=== PATIENT | female | born 1925 | race American Indian/Alaskan Native ===

== ENCOUNTER 2016-08-30 13:59 | Observation (INO) | payer MEDICARE, MEDICAID, OTHER ==
[2016-08-30] MEDS ORDERED: Sodium Chloride 0.9% 2.5 ML Syringe FLUSH PRN (14:30)
[2016-08-30] MEDS ORDERED: Sodium Chloride 0.9% 10 ML Syringe FLUSH PRN (14:30)
--- NOTE | 2016-08-30 14:38 | EDM.PDOC ---
ED HPI GENERAL MEDICAL PROBLEM - General Chief Complaint: General Stated Complaint: FALL 08/16/16 PAIN IN HIP,L LEG Time Seen by Provider: 08/30/16 14:03 - History of Present Illness INITIAL COMMENTS - FREE TEXT/NARRATIVE: HISTORY AND PHYSICAL: History of present illness: The patient is an 89-year-old female who resides at [facility] and has a history of hypertension osteoarthritis pacemaker TIAs and was just recently diagnosed with the UTI is currently on Cipro and presents with complaints of inability to weight-bear on the left leg. According to the history she had a fall on August 15, 2 weeks ago but did not have any complaints of severe pain in the leg but has had some new increased in the pain without any new trauma. According to the provider at [facility] she has had more than this one fall and because she is unable to ambulate they thought she should be evaluated in the ER. According to the nurse at bedside they have great difficulty transferring her and she needs evaluation due to her screaming out whenever she puts weight on the leg. The patient is not a very good historian and complains of pain everywhere I touch on my evaluation but says it is mostly localized in the right hip and entire leg. She has no back or neck pain no headache no shortness of breath and no chest pain. To the longterm she complained of left rib pain but on my evaluation she was vague. She has no abdominal pain. She's been eating normally without vomiting or diarrhea. Review of systems: As per history of present illness and below otherwise all systems reviewed and negative. Past medical history: As per history of present illness and as reviewed below otherwise noncontributory. Surgical history: As per history of present illness and as reviewed below otherwise noncontributory. Social history: No reported history of drug or alcohol abuse. Family history: As per history of present illness and as reviewed below otherwise noncontributory. Physical exam: Gen.: Well-developed well-nourished female who is communicative and interactive but has difficulty moving in the bed due to overall discomfort. She speaks clearly without breathlessness HEENT: Atraumatic, except for a resolving ecchymosis at her left eyebrow area, normocephalic, pupils reactive, negative for conjunctival pallor or scleral icterus, mucous membranes moist, throat clear, neck supple, nontender, trachea midline. Lungs: Clear to auscultation with some coarse rhonchi scattered throughout but no worker breathing, breath sounds equal bilaterally, chest nontender. Pacemaker is appreciated in the left upper chest wall Heart: S1S2, regular rate and rhythm no overt murmurs Abdomen: Soft, nondistended, nontender. Negative for masses or hepatosplenomegaly. Negative for costovertebral tenderness. Pelvis: Stable nontender. Genitourinary: Deferred. Rectal: Deferred. Extremities: Atraumatic without any ecchymosis or abrasions, the right knee is very arthritic with some mild tenderness but there is no palpable bony deformities and she is able to range of motion here. There is tenderness at palpation of the lateral hip the distal femur and the tib-fib and knee on the left all without any bony deformities ecchymosis abrasions erythema or warmth. The patient resists range of motion on my evaluation of this extremity. The legs are, negative for cords or calf pain. Neurovascular unremarkable. Neuro: Awake, alert, oriented. Motor and sensory unremarkable throughout. Exam nonfocal. Back: There are no midline step-offs tendency defects of the thoracic or lumbar spine and no soft tissue injury such as ecchymosis abrasion or soft tissue changes. The thoracic spine is kyphotic Diagnostics: EKG CBC CMP INR troponin UA CT scan of the head left rib x-ray with chest x-ray left hip x-ray with pelvis left femur and tib-fib x-rays Therapeutics: IV O2 monitor 1718: I discussed all testing results with the patient family and Dr. Squires our hospitalist. We will observe admit the patient for development of pain management plan and physical therapy as the patient cannot weight-bear at this time although it is unclear why as all x-rays are negative. The patient is currently on Cipro for her UTI but a culture was sent and that information was passed on to Dr. Squires. As long as we do not move the patient she has not any pain and does not want any pain medication. Impression: Fall subacute with right rib fractures and intractable pain, inability to ambulate due to leg contusion, UTI on Cipro therapy Definitive disposition and diagnosis as appropriate pending reevaluation and review of above. left shoulder; left lower extremity Pain Score (Numeric/FACES): 6 - Related Data Allergies Allergy/AdvReac Type Severity Reaction Status Date / Time meperidine HCl [From Demerol] Allergy Other Verified 08/30/16 14:19 sumatriptan [From Imitrex] Allergy Other Verified 08/30/16 14:19 sumatriptan succinate Allergy Other Verified 08/30/16 14:19 [From Imitrex] Home Meds: Home Meds Acetaminophen [Tylenol] 325 mg PO Q4H PRN 02/07/14 [History] Acetaminophen with Codeine [Tylenol with Codeine #3 Tablet] 1 each PO TID PRN [History] Diltiazem [Cardizem CD] 120 mg PO DAILY 02/07/14 [History] Metoprolol Tartrate 25 mg PO BID 02/07/14 [History] Calcium Carbonate [Tums] 1,000 mg PO Q6H PRN 08/30/16 [History] Carboxymethylcellulose Sodium [Refresh Tears] 1 drop OP BID 08/30/16 [History] Ergocalciferol (Vitamin D2) [Vitamin D2] 50,000 unit PO FR 08/30/16 [History] Furosemide 40 mg PO DAILY 08/30/16 [History] Loperamide HCl [Imodium A-D] 2 - 4 mg PO ASDIRECTED PRN 08/30/16 [History] Menthol [Icy Hot Pain Relieving] 1 appful TP DAILY PRN 08/30/16 [History] Omeprazole 20 mg PO ACBREAKFAST 08/30/16 [History] Petrolatum,White [Vaseline] 18 ml TP DAILY PRN 08/30/16 [History] Potassium Chloride 20 meq PO DAILY 08/30/16 [History] Venlafaxine [Effexor XR] 37.5 mg PO DAILY 08/30/16 [History] Vit A/Vit C/Vit E/Zinc/Copper [Preservision] 1 each PO DAILY 08/30/16 [History] Past Medical History Cardiovascular History: Reports: Hypertension, Other (See Below) Other Cardiovascular History: edema Gastrointestinal History: Reports: GERD Musculoskeletal History: Reports: RA Psychiatric History: Reports: Depression - Infectious Disease History Infectious Disease History: Reports: None Social & Family History - Family History Family Medical History: Noncontributory - Tobacco Use Smoking Status *Q: Never Smoker Years of Tobacco use: 53 Used Tobacco, but Quit: Yes Month Tobacco Last Used: September Second Hand Smoke Exposure: No - Caffeine Use Caffeine Use: Reports: None - Alcohol Use Days Per Week of Alcohol Use: 0 - Recreational Drug Use Recreational Drug Use: No ED ROS GENERAL - Review of Systems Review Of Systems: ROS reveals no pertinent complaints other than HPI. ED EXAM, GENERAL - Physical Exam Exam: See Below (See dictation) Course - Vital Signs Last Recorded V/S: Last Vital Signs Temp 36.1 C 08/30/16 14:19 Pulse 91 08/30/16 17:28 Resp 18 08/30/16 17:28 BP 112/76 08/30/16 17:28 Pulse Ox 96 08/30/16 17:28 - Orders/Labs/Meds Orders: Active Orders 24 hr Category Date Time Status Patient Status [ADT] Stat ADT 08/30/16 17:28 Ordered Cardiac Monitoring [RC] . DIRECTED Care 08/30/16 14:29 Active EKG Documentation Completion [RC] STAT Care 08/30/16 14:29 Active Oxygen Therapy, ED [RC] ASDIRECTED Care 08/30/16 14:29 Active Pulse Oximetry [RC] ASDIRECTED Care 08/30/16 14:29 Active Femur Min 2V Lt [CR] Stat Exams 08/30/16 14:30 Taken Head wo Cont [CT] Stat Exams 08/30/16 14:30 Taken Hip Min 2V or 3V w Pelvis Lt [CR] Stat Exams 08/30/16 14:30 Taken Ribs 2V w Chest Lt [CR] Stat Exams 08/30/16 14:30 Taken Tibia Fibula Lt [CR] Stat Exams 08/30/16 14:30 Taken CULTURE URINE [RM] Stat Lab 08/30/16 15:40 Received Sodium Chloride 0.9% [Saline Flush] Med 08/30/16 14:30 Active 10 ml FLUSH ASDIRECTED PRN Sodium Chloride 0.9% [Saline Flush] Med 08/30/16 14:30 Active 2.5 ml FLUSH ASDIRECTED PRN Saline Lock Insert [OM.PC] Stat Oth 08/30/16 14:29 Ordered Medication Orders Sodium Chloride (Saline Flush) 10 ml FLUSH ASDIRECTED PRN PRN Reason: Keep Vein Open Sodium Chloride (Saline Flush) 2.5 ml FLUSH ASDIRECTED PRN PRN Reason: Keep Vein Open Labs: Laboratory Tests 08/30/16 08/30/16 08/30/16 Range/Units 14:41 14:41 14:41 WBC 11.66 H (4.0-11.0) K/uL RBC 4.18 L (4.30-5.90) M/uL Hgb 12.8 (12.0-16.0) g/dL Hct 39.2 (36.0-46.0) % MCV 93.8 (80.0-98.0) fL MCH 30.6 (27.0-32.0) pg MCHC 32.7 (31.0-37.0) g/dL RDW Std Deviation 48.9 (28.0-62.0) fl RDW Coeff of Colin 14 (11.0-15.0) % Plt Count 299 (150-400) K/uL MPV 10.20 (7.40-12.00) fL Neut % (Auto) 75.5 (48.0-80.0) % Lymph % (Auto) 17.3 (16.0-40.0) % Phelps % (Auto) 6.1 (0.0-15.0) % Eos % (Auto) 0.9 (0.0-7.0) % Baso % (Auto) 0.2 (0.0-1.5) % Neut # (Auto) 8.8 H (1.4-5.7) K/uL Lymph # (Auto) 2.0 (0.6-2.4) K/uL Phelps # (Auto) 0.7 (0.0-0.8) K/uL Eos # (Auto) 0.1 (0.0-0.7) K/uL Baso # (Auto) 0.0 (0.0-0.1) K/uL Nucleated RBC % 0.0 /100WBC Nucleated RBCs # 0 K/uL INR 1.07 (0.86-1.11) Sodium 138 (136-146) mmol/L Potassium 5.2 H (3.5-5.1) mmol/L Chloride 109 (98-110) mmol/L Carbon Dioxide 18 L (21-31) mmol/L BUN 21 (6.0-23.0) mg/dL Creatinine 1.1 (0.6-1.5) mg/dL Est Cr Clr Drug Dosing TNP Estimated GFR (MDRD) 46.9 ml/min Glucose 141 H (60-110) mg/dL Calcium 8.1 L (8.8-10.8) mg/dL Total Bilirubin 0.3 (0.1-1.5) mg/dL AST 34 (5-40) IU/L ALT 34 (8-54) IU/L Alkaline Phosphatase 172 H (40-150) Troponin I (0.0-0.29) NG/ML Total Protein 6.2 (6.0-8.0) g/dL Albumin 2.5 L (3.4-4.8) g/dL Globulin 3.7 H (2.0-3.5) g/dL Albumin/Globulin Ratio 0.7 L (1.3-2.8) Urine Color Urine Appearance Urine pH (5.0-8.0) Ur Specific [place] (1.001-1.035) Urine Protein (NEGATIVE) mg/dL Urine Glucose (UA) (NEGATIVE) mg/dL Urine Ketones (NEGATIVE) mg/dL Urine Occult Blood (NEGATIVE) Urine Nitrite (NEGATIVE) Urine Bilirubin (NEGATIVE) Urine Urobilinogen (<2.0) EU/dL Ur Leukocyte Esterase (NEGATIVE) Urine RBC (0-2/HPF) Urine WBC (0-5/HPF) Ur Epithelial Cells (NONE-FEW) Urine Bacteria (NEGATIVE) 08/30/16 08/30/16 Range/Units 14:41 15:40 WBC (4.0-11.0) K/uL RBC (4.30-5.90) M/uL Hgb (12.0-16.0) g/dL Hct (36.0-46.0) % MCV (80.0-98.0) fL MCH (27.0-32.0) pg MCHC (31.0-37.0) g/dL RDW Std Deviation (28.0-62.0) fl RDW Coeff of Colin (11.0-15.0) % Plt Count (150-400) K/uL MPV (7.40-12.00) fL Neut % (Auto) (48.0-80.0) % Lymph % (Auto) (16.0-40.0) % Phelps % (Auto) (0.0-15.0) % Eos % (Auto) (0.0-7.0) % Baso % (Auto) (0.0-1.5) % Neut # (Auto) (1.4-5.7) K/uL Lymph # (Auto) (0.6-2.4) K/uL Phelps # (Auto) (0.0-0.8) K/uL Eos # (Auto) (0.0-0.7) K/uL Baso # (Auto) (0.0-0.1) K/uL Nucleated RBC % /100WBC Nucleated RBCs # K/uL INR (0.86-1.11) Sodium (136-146) mmol/L Potassium (3.5-5.1) mmol/L Chloride (98-110) mmol/L Carbon Dioxide (21-31) mmol/L BUN (6.0-23.0) mg/dL Creatinine (0.6-1.5) mg/dL Est Cr Clr Drug Dosing Estimated GFR (MDRD) ml/min Glucose (60-110) mg/dL Calcium (8.8-10.8) mg/dL Total Bilirubin (0.1-1.5) mg/dL AST (5-40) IU/L ALT (8-54) IU/L Alkaline Phosphatase (40-150) Troponin I < 0.10 (0.0-0.29) NG/ML Total Protein (6.0-8.0) g/dL Albumin (3.4-4.8) g/dL Globulin (2.0-3.5) g/dL Albumin/Globulin Ratio (1.3-2.8) Urine Color YELLOW Urine Appearance CLOUDY Urine pH 5.5 (5.0-8.0) Ur Specific [place] 1.020 (1.001-1.035) Urine Protein NEGATIVE (NEGATIVE) mg/dL Urine Glucose (UA) NEGATIVE (NEGATIVE) mg/dL Urine Ketones NEGATIVE (NEGATIVE) mg/dL Urine Occult Blood MODERATE (NEGATIVE) Urine Nitrite NEGATIVE (NEGATIVE) Urine Bilirubin NEGATIVE (NEGATIVE) Urine Urobilinogen 0.2 (<2.0) EU/dL Ur Leukocyte Esterase LARGE (NEGATIVE) Urine RBC 1-3 (0-2/HPF) Urine WBC TO NUMEROUS TO COUNT H (0-5/HPF) Ur Epithelial Cells FEW (NONE-FEW) Urine Bacteria 2+ H (NEGATIVE) Meds: Medications Generic Name Dose Route Start Last Admin Trade Name Freq PRN Reason Stop Dose Admin Sodium Chloride 10 ml 08/30/16 14:30 Saline Flush FLUSH ASDIRECTED PRN Keep Vein Open Sodium Chloride 2.5 ml 08/30/16 14:30 Saline Flush FLUSH ASDIRECTED PRN Keep Vein Open Departure - Departure Time of Disposition: 17:33 Disposition: Refer to Observation Condition: Good Clinical Impression: Unable to ambulate Rib fractures Qualifiers: Encounter type: initial encounter Rib fracture type: multiple ribs Fracture type: closed Laterality: left Qualified Code(s): S22.42XA - Multiple fractures of ribs, left side, initial encounter for closed fracture Contusion of leg Qualifiers: Encounter type: initial encounter Laterality: left Qualified Code(s): S80.12XA - Contusion of left lower leg, initial encounter - Discharge Information Forms: ED Department Discharge - My Orders Last 24 Hours: My Active Orders 08/30/16 14:29 Cardiac Monitoring [RC] . DIRECTED EKG Documentation Completion [RC] STAT Oxygen Therapy, ED [RC] ASDIRECTED Pulse Oximetry [RC] ASDIRECTED Saline Lock Insert [OM.PC] Stat 08/30/16 14:30 Femur Min 2V Lt [CR] Stat Head wo Cont [CT] Stat Hip Min 2V or 3V w Pelvis Lt [CR] Stat Ribs 2V w Chest Lt [CR] Stat Tibia Fibula Lt [CR] Stat Sodium Chloride 0.9% [Saline Flush] 10 ml FLUSH ASDIRECTED PRN Sodium Chloride 0.9% [Saline Flush] 2.5 ml FLUSH ASDIRECTED PRN 08/30/16 15:40 CULTURE URINE [RM] Stat 08/30/16 17:28 Patient Status [ADT] Stat - Assessment/Plan Last 24 Hours: My Active Orders 08/30/16 14:29 Cardiac Monitoring [RC] . DIRECTED EKG Documentation Completion [RC] STAT Oxygen Therapy, ED [RC] ASDIRECTED Pulse Oximetry [RC] ASDIRECTED Saline Lock Insert [OM.PC] Stat 08/30/16 14:30 Femur Min 2V Lt [CR] Stat Head wo Cont [CT] Stat Hip Min 2V or 3V w Pelvis Lt [CR] Stat Ribs 2V w Chest Lt [CR] Stat Tibia Fibula Lt [CR] Stat Sodium Chloride 0.9% [Saline Flush] 10 ml FLUSH ASDIRECTED PRN Sodium Chloride 0.9% [Saline Flush] 2.5 ml FLUSH ASDIRECTED PRN 08/30/16 15:40 CULTURE URINE [RM] Stat 08/30/16 17:28 Patient Status [ADT] Stat
[2016-08-30 15:10] LABS: CHLORIDE,CL 109 mmol/L (98-110); SODIUM,NA 138 mmol/L (136-146)
[2016-08-30] MEDS ORDERED: Acetaminophen 325 MG Tab PO PRN (18:33)
[2016-08-30] MEDS ORDERED: Acetaminophen/HYDROcodone 325-5 MG Tab PO PRN (18:33)
[2016-08-30] MEDS ORDERED: Ondansetron 4 MG Tab.DIS PO PRN (18:33)
[2016-08-30] MEDS ORDERED: Calcium Carbonate 500 MG Tab.Chew PO PRN (18:39)
--- NOTE | 2016-08-30 19:21 | PCM.HP ---
<NagaDada - Last Filed: 08/30/16 19:13> H&P History of Present Illness - General Date of Service: 08/30/16 Admit Problem/Dx: fall Source of Information: Patient, Intermediate Records, Provider History Limitations: Reports: No Limitations - History of Present Illness Initial Comments - Free Text/Narative: 89-year-old female admitted 08/30/18 for fall with sustained right rib fractures and left leg pain with pmh of htn, bi-valv pacemaker, TIA, osteoarthritis, GERD , depression, and recently diagnosed UTI on Cipro. Patient is an 89 yo female who resides at [facility] and according to history had a fall on August 15, but did not have any complaints of pain. She presented to the ED on 08/30/18 after compaining of severe left leg pain without new trauma. She refused to stand or put weight on her left leg at [place] and was brought to ED for evaluation. Patient also complained of some left rib pain. Previously she had been eating normally without vomiting or diarrhea. She was diagnosed with a UTI and had been started on Cipro. On exam the patient is exquisitely tender to touch of the entire left extremity including hip. There is no significant swelling noted in comparison of right and left extremity. She does have mild tenderness to the left ribs. I did not appreciate any exceptional CVA tenderness on exam although the patient would not sit upright secondary to pain. Patient has a small area of ecchymosis on the left evangelical. No visual defects in skin of left leg or hip. Patient denied any chest pain, shortness of breath, syncope, abdominal pain, nausea, vomiting, or diarrhea. In the emergency department, CT of the head, x-ray of the left tib-fib, femur, and pelvis is unremarkable. There was noted lateral fractures of the seventh through 10th ribs and a 3.2 cm pulmonary mass in the left upper lobe. Patient had mild leukocytosis of 11.6, hyperkalemia at 5.2, and positive urinalysis for infection. Urine culture was sent. Patient was afebrile and normotensive. ECG showed no signs of acute eczema changes. Patient was admitted for fall, further evaluation, and pain management. left shoulder; left lower extremity Pain Score (Numeric/FACES): 6 - Related Data Allergies/Adverse Reactions: Allergies Allergy/AdvReac Type Severity Reaction Status Date / Time meperidine HCl [From Demerol] Allergy Other Verified 08/30/16 14:19 sumatriptan [From Imitrex] Allergy Other Verified 08/30/16 14:19 sumatriptan succinate Allergy Other Verified 08/30/16 14:19 [From Imitrex] Home Medications: Home Meds Acetaminophen [Tylenol] 325 mg PO Q4H PRN 02/07/14 [History] Acetaminophen with Codeine [Tylenol with Codeine #3 Tablet] 1 each PO TID PRN [History] Diltiazem [Cardizem CD] 120 mg PO DAILY 02/07/14 [History] Metoprolol Tartrate 25 mg PO BID 02/07/14 [History] Calcium Carbonate [Tums] 1,000 mg PO Q6H PRN 08/30/16 [History] Carboxymethylcellulose Sodium [Refresh Tears] 1 drop EYEBOTH BID 08/30/16 [ History] Ergocalciferol (Vitamin D2) [Vitamin D2] 50,000 unit PO FR@0800 08/30/16 [ History] Furosemide 40 mg PO DAILY 08/30/16 [History] Loperamide HCl [Imodium A-D] 4 mg PO ONETIME PRN 08/30/16 [History] Menthol [Icy Hot Pain Relieving] 1 appful TP BID PRN 08/30/16 [History] Omeprazole 20 mg PO ACBREAKFAST 08/30/16 [History] Petrolatum,White [Vaseline] 1 applic TP DAILY PRN 08/30/16 [History] Potassium Chloride 20 meq PO DAILY 08/30/16 [History] Venlafaxine [Effexor XR] 37.5 mg PO DAILY 08/30/16 [History] Vit A/Vit C/Vit E/Zinc/Copper [Preservision] 2 tab PO DAILY 08/30/16 [History] Acetaminophen [Tylenol] 325 mg PO DAILY 08/31/16 [History] Ciprofloxacin HCl [Cipro] 250 mg PO Q12H 08/31/16 [History] Loperamide [Imodium] 2 mg PO QID PRN 08/31/16 [History] Past Medical History Cardiovascular History: Reports: Hypertension, Other (See Below) Other Cardiovascular History: edema Gastrointestinal History: Reports: GERD Musculoskeletal History: Reports: RA Psychiatric History: Reports: Depression Oncologic (Cancer) History: Reports: Pancreatic - Infectious Disease History Infectious Disease History: Reports: None Social & Family History - Family History Family Medical History: Noncontributory - Tobacco Use Smoking Status *Q: Never Smoker Years of Tobacco use: 53 Used Tobacco, but Quit: Yes Month Tobacco Last Used: September Second Hand Smoke Exposure: No - Caffeine Use Caffeine Use: Reports: None - Alcohol Use Days Per Week of Alcohol Use: 0 - Recreational Drug Use Recreational Drug Use: No H&P Review of Systems - Review of Systems: Review Of Systems: See Below General: Denies: Fever, Chills, Diaphoresis HEENT: Denies: Headaches, Sore Throat Pulmonary: Reports: Cough. Denies: Shortness of Breath, Wheezing, Sputum, Hemoptysis Cardiovascular: Denies: Chest Pain, Palpitations, Edema Gastrointestinal: Denies: Abdominal Pain, Constipation, Diarrhea, Nausea, Vomiting Genitourinary: Denies: Dysuria, Burning, Pain Musculoskeletal: Reports: Leg Pain. Denies: Neck Pain Skin: Denies: Cyanosis Psychiatric: Denies: Confusion, Depression Neurological: Denies: Confusion, Dizziness, Headache Exam - Exam Exam: See Below - Vital Signs Vital Signs: Last Vital Signs Temp 36.1 C 08/30/16 18:15 Pulse 80 08/30/16 17:55 Resp 18 08/30/16 17:55 BP 127/66 08/30/16 18:15 Pulse Ox 94 L 08/30/16 18:15 Weight: 66.678 kg - Exam Quality Assessment: DVT Prophylaxis General: Alert, Oriented, Cooperative HEENT: Conjunctiva Clear, EACs Clear, EOMI, Hearing Intact, Mucosa Moist & [place] , Nares Patent, Normal Nasal Septum, Posterior Pharynx Clear, PERRLA Neck: Supple, Trachea Midline, 2 Lungs: Clear to Auscultation, Normal Respiratory Effort Cardiovascular: Regular Rate, Regular Rhythm Abdomen: Normal Bowel Sounds, Soft Back Exam: Normal Inspection. No: CVA Tenderness (L), CVA Tenderness (R) Extremities: Normal Inspection, Normal Pulses. No: Edema Peripheral Pulses: 2+: Brachial (L), Brachial (R), Posterior Tibial (L), Posterior Tibial (R), Dorsalis Pedis (L), Dorsalis Pedis (R) Skin: Warm, Dry, Intact Neurological: Cranial Nerves Intact Neuro Extensive - Mental Status: Alert, Oriented x3, Normal Mood/Affect, Normal Cognition Neuro Extensive - Motor, Sensory, Reflexes: CN II-XII Intact, Normal Gait, Normal Reflexes Psychiatric: Alert, Normal Affect, Normal Mood - Patient Data Result Diagrams: 08/30/16 14:41 08/30/16 14:41 *Q Meaningful Use (ADM) - VTE *Q VTE Criteria *Q: - Stroke *Q Stroke Criteria *Q: - AMI *Q AMI Criteria *Q: - Problem List (1) Rib fractures SNOMED Code(s): 00927655 ICD Code: S22.39XA - FRACTURE OF ONE RIB, UNSP SIDE, INIT FOR CLOS FX Status: Acute Priority: High Current Visit: Yes Qualifiers: Encounter type: initial encounter Rib fracture type: multiple ribs Fracture type: closed Laterality: left Qualified Code(s): S22.42XA - Multiple fractures of ribs, left side, initial encounter for closed fracture (2) Unable to ambulate SNOMED Code(s): 761362219 ICD Code: R26.2 - DIFFICULTY IN WALKING, NOT ELSEWHERE CLASSIFIED Status: Acute Priority: High Current Visit: Yes (3) Contusion SNOMED Code(s): 713014638 ICD Code: T14.8 - OTHER INJURY OF UNSPECIFIED BODY REGION Status: Acute Priority: Medium Current Visit: Yes Onset Date: 02/07/14 (4) Fall SNOMED Code(s): 5414513 ICD Code: W19.XXXA - UNSPECIFIED FALL, INITIAL ENCOUNTER Status: Acute Priority: High Current Visit: Yes Onset Date: 02/13/14 Problem List Initiated/Reviewed/Updated: Yes Orders Last 24hrs: Active Orders 24 hr Category Date Time Status Patient Status [ADT] Routine ADT 08/30/16 18:33 Ordered Antiembolic Devices [RC] PER UNIT ROUTINE Care 08/30/16 18:38 Ordered Oxygen Therapy [RC] PRN Care 08/30/16 18:33 Ordered Up With Assistance [RC] ASDIRECTED Care 08/30/16 18:33 Ordered VTE/DVT Education [RC] PER UNIT ROUTINE Care 08/30/16 18:33 Ordered Vital Signs [RC] Q4H Care 08/30/16 18:33 Ordered OT Evaluation and Treatment [CONS] Routine Cons 08/30/16 18:33 Ordered PT Evaluation and Treatment [CONS] Routine Cons 08/30/16 18:33 Ordered Regular Diet [DIET] Diet 08/30/16 Dinner Ordered VL Duplex Lwr Ext Veins Ltd Lt [US] Routine Exams 08/30/16 18:51 Ordered BASIC METABOLIC PANEL,BMP [CHEM] AM Lab 08/31/16 05:11 Ordered BASIC METABOLIC PANEL,BMP [CHEM] AM Lab 09/01/16 05:11 Ordered BASIC METABOLIC PANEL,BMP [CHEM] AM Lab 09/02/16 05:11 Ordered BASIC METABOLIC PANEL,BMP [CHEM] AM Lab 09/03/16 05:11 Ordered CBC WITH AUTO DIFF [HEME] AM Lab 08/31/16 05:11 Ordered CBC WITH AUTO DIFF [HEME] AM Lab 09/01/16 05:11 Ordered CBC WITH AUTO DIFF [HEME] AM Lab 09/02/16 05:11 Ordered CBC WITH AUTO DIFF [HEME] AM Lab 09/03/16 05:11 Ordered MAGNESIUM [CHEM] AM Lab 08/31/16 05:11 Ordered PHOSPHORUS [CHEM] AM Lab 08/31/16 05:11 Ordered Acetaminophen [Tylenol] Med 08/30/16 18:33 Ordered 650 mg PO Q4H PRN Acetaminophen/HYDROcodone [[place] 325-5 MG] Med 08/30/16 18:33 Ordered 1 tab PO Q4H PRN Calcium Carbonate [Tums] Med 08/30/16 18:39 Ordered 1,000 mg PO Q6H PRN Carboxymethylcellulose Sodium Med 08/30/16 21:00 Ordered 1 drop OP BID Ciprofloxacin in D5W [Cipro in D5W 400 MG/200 ML] 400 Med 08/30/16 18:45 Ordered mg Premix Bag 1 bag IV Q12H Diltiazem [Cardizem CD] Med 08/31/16 09:00 Ordered 120 mg PO DAILY Furosemide [Lasix] Med 08/31/16 09:00 Ordered 40 mg PO DAILY Metoprolol Tartrate [Lopressor] Med 08/30/16 21:00 Ordered 25 mg PO BID Omeprazole Med 08/31/16 07:30 Ordered 20 mg PO ACBREAKFAST Ondansetron [Zofran ODT] Med 08/30/16 18:33 Ordered 4 mg PO Q4H PRN Venlafaxine [Effexor XR] Med 08/31/16 09:00 Ordered 37.5 mg PO DAILY Sequential Compression Device [OM.PC] Per Unit Routine Oth 08/30/16 18:36 Ordered Resuscitation Status Routine Resus Stat 08/30/16 18:33 Ordered Medication Orders Acetaminophen (Tylenol) 650 mg PO Q4H PRN PRN Reason: Pain (Mild 1-3)/fever Hydrocodone Bitart/Acetaminophen ([place] 325-5 Mg) 1 tab PO Q4H PRN PRN Reason: Pain (moderate 4-6) Calcium Carbonate/Glycine (Tums) 1,000 mg PO Q6H PRN PRN Reason: Heartburn Diltiazem HCl (Cardizem Cd) 120 mg PO DAILY [place] Furosemide (Lasix) 40 mg PO DAILY [place] Ciprofloxacin/Dextrose 400 mg/ (Premix) 200 mls @ 200 mls/hr IV Q12H [place] Metoprolol Tartrate (Lopressor) 25 mg PO BID [facility] Non-Formulary Medication (Carboxymethylcellulose Sodium) 1 drop OP BID [place] Omeprazole (Omeprazole) 20 mg PO ACBREAKFAST [place] Ondansetron HCl (Zofran Odt) 4 mg PO Q4H PRN PRN Reason: nausea, able to take PO Sodium Chloride (Saline Flush) 10 ml FLUSH ASDIRECTED PRN PRN Reason: Keep Vein Open Sodium Chloride (Saline Flush) 2.5 ml FLUSH ASDIRECTED PRN PRN Reason: Keep Vein Open Venlafaxine HCl (Effexor Xr) 37.5 mg PO DAILY [facility] Assessment/Plan Comment:: 89-year-old female admitted 08/30/18 for fall with sustained right rib fractures and left leg pain with pmh of htn, bi-valv pacemaker, TIA, osteoarthritis, GERD , depression, and recently diagnosed UTI on Cipro. Left Leg Pain: X-ray's negative for acute osseous abnormalities. Will get venous doplar to rule out DVT however there is no noted swelling. This may be referred pain from her back but difficult to assess as patient is difficult to exam. UTI: Culture collected. Will start Cipro IV while inpatient. No noted CVA tenderness on exam however difficult to assess. No abdominal pain. Rib fractures: 7-10 left rib fractures. Stable no flail chest. Pain control acetaminophen and [place] 5 htn: Stable restart home meds Bi-valv pacemaker: Stable on telemetry GERD: Stable restart home meds. Debilitation: PT/OT to assess balance and strengthening VTE: SCD high fall risk Dispo: 1-2 days. <Jose Squires - Last Filed: 08/31/16 19:12> Exam - Vital Signs Vital Signs: Last Vital Signs Temp 36.4 C 08/31/16 16:00 Pulse 88 08/31/16 16:00 Resp 18 08/31/16 16:00 BP 126/82 08/31/16 16:00 Pulse Ox 95 08/31/16 18:33 - Patient Data Lab Results Last 24 hrs: Laboratory Results - last 24 hr 08/31/16 08/31/16 Range/Units 04:17 04:17 WBC 10.24 (4.0-11.0) K/uL RBC 4.22 L (4.30-5.90) M/uL Hgb 12.7 (12.0-16.0) g/dL Hct 39.8 (36.0-46.0) % MCV 94.3 (80.0-98.0) fL MCH 30.1 (27.0-32.0) pg MCHC 31.9 (31.0-37.0) g/dL RDW Std Deviation 49.8 (28.0-62.0) fl RDW Coeff of Colin 15 (11.0-15.0) % Plt Count 303 (150-400) K/uL MPV 10.20 (7.40-12.00) fL Neut % (Auto) 68.7 (48.0-80.0) % Lymph % (Auto) 22.1 (16.0-40.0) % Karnes % (Auto) 7.2 (0.0-15.0) % Eos % (Auto) 1.8 (0.0-7.0) % Baso % (Auto) 0.2 (0.0-1.5) % Neut # (Auto) 7.0 H (1.4-5.7) K/uL Lymph # (Auto) 2.3 (0.6-2.4) K/uL Karnes # (Auto) 0.7 (0.0-0.8) K/uL Eos # (Auto) 0.2 (0.0-0.7) K/uL Baso # (Auto) 0.0 (0.0-0.1) K/uL Nucleated RBC % 0.0 /100WBC Nucleated RBCs # 0 K/uL Sodium 137 (136-146) mmol/L Potassium 4.4 (3.5-5.1) mmol/L Chloride 107 (98-110) mmol/L Carbon Dioxide 20 L (21-31) mmol/L BUN 18 (6.0-23.0) mg/dL Creatinine 1.0 (0.6-1.5) mg/dL Est Cr Clr Drug Dosing 32.17 mL/min Estimated GFR (MDRD) 52.3 ml/min Glucose 88 (60-110) mg/dL Calcium 8.1 L (8.8-10.8) mg/dL Phosphorus 3.2 (2.4-4.7) mg/dL Magnesium 1.5 (1.5-2.3) mEq/L Result Diagrams: 08/31/16 04:17 08/31/16 04:17 *Q Meaningful Use (ADM) - VTE *Q VTE Criteria *Q: - Stroke *Q Stroke Criteria *Q: - AMI *Q AMI Criteria *Q: Orders Last 24hrs: Active Orders 24 hr Category Date Time Status Patient Status [ADT] Routine ADT 08/30/16 18:33 Active Antiembolic Devices [RC] PER UNIT ROUTINE Care 08/30/16 18:38 Active Oxygen Therapy [RC] PRN Care 08/30/16 18:33 Active Up With Assistance [RC] ASDIRECTED Care 08/30/16 18:33 Active Vital Signs [RC] Q4H Care 08/30/16 18:33 Active OT Evaluation and Treatment [CONS] Routine Cons 08/30/16 18:33 Active PT Evaluation and Treatment [CONS] Routine Cons 08/30/16 18:33 Active Regular Diet [DIET] Diet 08/30/16 Dinner Active BASIC METABOLIC PANEL,BMP [CHEM] AM Lab 09/01/16 05:11 Ordered BASIC METABOLIC PANEL,BMP [CHEM] AM Lab 09/02/16 05:11 Ordered BASIC METABOLIC PANEL,BMP [CHEM] AM Lab 09/03/16 05:11 Ordered CBC WITH AUTO DIFF [HEME] AM Lab 09/01/16 05:11 Ordered CBC WITH AUTO DIFF [HEME] AM Lab 09/02/16 05:11 Ordered CBC WITH AUTO DIFF [HEME] AM Lab 09/03/16 05:11 Ordered Acetaminophen [Tylenol] Med 08/30/16 18:33 Active 650 mg PO Q4H PRN Acetaminophen/Codeine [Tylenol with Codeine No.3 300MG/ Med 08/30/16 19:29 Active 30MG] 1 tab PO TID PRN Acetaminophen/HYDROcodone [[place] 325-5 MG] Med 08/30/16 18:33 Active 1 tab PO Q4H PRN Calcium Carbonate [Tums] Med 08/30/16 18:39 Active 1,000 mg PO Q6H PRN Carboxymethylcellulose Sodium [Refresh Plus 0.5%] Med 08/30/16 21:00 Active 0 each EYEBOTH BID Ciprofloxacin in D5W [Cipro in D5W 400 MG/200 ML] 400 Med 08/30/16 18:45 Active mg Premix Bag 1 bag IV Q12H Diltiazem [Cardizem CD] Med 08/31/16 09:00 Active 120 mg PO DAILY Furosemide [Lasix] Med 08/31/16 09:00 Active 40 mg PO DAILY Metoprolol Tartrate [Lopressor] Med 08/30/16 21:00 Active 25 mg PO BID Omeprazole Med 08/31/16 07:30 Active 20 mg PO ACBREAKFAST Ondansetron [Zofran ODT] Med 08/30/16 18:33 Active 4 mg PO Q4H PRN Potassium Chloride [Klor-Con M20] Med 08/31/16 09:00 Active 20 meq PO DAILY Venlafaxine [Effexor XR] Med 08/31/16 09:00 Active 37.5 mg PO DAILY Sequential Compression Device [OM.PC] Per Unit Routine Oth 08/30/16 18:36 Ordered Resuscitation Status Routine Resus Stat 08/30/16 18:33 Ordered Medication Orders Acetaminophen (Tylenol) 650 mg PO Q4H PRN PRN Reason: Pain (Mild 1-3)/fever Acetaminophen/Codeine Phosphate (Tylenol With Codeine No.3 300mg/30mg) 1 tab PO TID PRN PRN Reason: Pain Last Admin: 08/31/16 16:41 Dose: 1 tab Admin: 08/31/16 05:48 Dose: 1 tab Admin: 08/30/16 20:09 Dose: 1 tab Hydrocodone Bitart/Acetaminophen ([place] 325-5 Mg) 1 tab PO Q4H PRN PRN Reason: Pain (moderate 4-6) Artificial Tears (Refresh Plus 0.5%) 0 each EYEBOTH BID [facility] Last Admin: 08/31/16 08:09 Dose: 1 drop Admin: 08/30/16 20:43 Dose: 1 drop Calcium Carbonate/Glycine (Tums) 1,000 mg PO Q6H PRN PRN Reason: Heartburn Diltiazem HCl (Cardizem Cd) 120 mg PO DAILY [facility] Last Admin: 08/31/16 08:09 Dose: 120 mg Furosemide (Lasix) 40 mg PO DAILY [facility] Last Admin: 08/31/16 08:10 Dose: 40 mg Ciprofloxacin/Dextrose 400 mg/ (Premix) 200 mls @ 200 mls/hr IV Q12H [facility] Last Admin: 08/31/16 17:49 Dose: 200 mls/hr Infusion: 08/31/16 06:43 Dose: 200 mls/hr Admin: 08/31/16 05:43 Dose: 200 mls/hr Infusion: 08/30/16 20:34 Dose: 200 mls/hr Admin: 08/30/16 19:34 Dose: 200 mls/hr Metoprolol Tartrate (Lopressor) 25 mg PO BID [facility] Last Admin: 08/31/16 08:08 Dose: 25 mg Admin: 08/30/16 20:43 Dose: 25 mg Omeprazole (Omeprazole) 20 mg PO ACBREAKFAST [facility] Last Admin: 08/31/16 06:34 Dose: 20 mg Ondansetron HCl (Zofran Odt) 4 mg PO Q4H PRN PRN Reason: nausea, able to take PO Potassium Chloride (Klor-Con M20) 20 meq PO DAILY [facility] Last Admin: 08/31/16 08:08 Dose: 20 meq Sodium Chloride (Saline Flush) 10 ml FLUSH ASDIRECTED PRN PRN Reason: Keep Vein Open Sodium Chloride (Saline Flush) 2.5 ml FLUSH ASDIRECTED PRN PRN Reason: Keep Vein Open Venlafaxine HCl (Effexor Xr) 37.5 mg PO DAILY [facility] Last Admin: 08/31/16 08:10 Dose: 37.5 mg - Free Text/Narrative Note: I have examined the patient. I have discussed findings and treatment plan with resident. I agree with the assessment and plan outlined in the following note.
[2016-08-30] MEDS: Ciprofloxacin in D5W 400 MG in Premix Bag 1 BAG IV SCH ×2 (19:34)
[2016-08-30] MEDS: Acetaminophen/Codeine 300-30 MG Tab PO PRN (20:09)
[2016-08-30] MEDS: Carboxymethylcellulose Sodium 0.5% Ophth Soln 0.4 ML UD Box of 30 EYEBOTH SCH (20:43)
[2016-08-30] MEDS: Metoprolol Tartrate 25 MG Tab PO SCH (20:43)
[2016-08-31] MEDS: Ciprofloxacin in D5W 400 MG in Premix Bag 1 BAG IV SCH ×4 (05:43→17:49)
[2016-08-31] MEDS: Acetaminophen/Codeine 300-30 MG Tab PO PRN ×2 (05:48→16:41)
[2016-08-31] MEDS: Omeprazole 20 MG Cap.CR PO SCH (06:34)
[2016-08-31] MEDS: Metoprolol Tartrate 25 MG Tab PO SCH ×2 (08:08→20:40)
[2016-08-31] MEDS: Potassium Chloride 20 MEQ Tab.ER PO SCH (08:08)
[2016-08-31] MEDS: Diltiazem 120 MG Cap.CD PO SCH (08:09)
[2016-08-31] MEDS: Carboxymethylcellulose Sodium 0.5% Ophth Soln 0.4 ML UD Box of 30 EYEBOTH SCH ×2 (08:09→20:39)
[2016-08-31] MEDS: Furosemide 40 MG Tab PO SCH (08:10)
[2016-08-31] MEDS: Venlafaxine 37.5 MG Cap.ER PO SCH (08:10)
--- NOTE | 2016-08-31 09:02 | US ---
ULTRASOUND EXAMINATION OF the left lower extremity WITH DOPPLER HISTORY: Pain FINDINGS: Examination of the left leg was performed from the groin to the calf region. All visualized segment s including common femoral, proximal greater saphenous, superficial femoral, popliteal and calf vein s appear patent with good compressibility and augmentation. There is no evidence of deep vein throm bosis. There is a small Chaparro's cyst noted. There is incidental occlusion noted within the proximal left femoral artery. IMPRESSION: 1. No evidence of a DVT. 2. 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
--- NOTE | 2016-08-31 11:39 | CT ---
EXAM DATE: 08/30/16 PATIENT'S AGE: 89 Patient: VIKTOR VASQUEZ Facility: [place], [place] Site . Site : 1925 Study: CT Head [id number]/21/2017 4:05:54 PM Ordering Physician: Don Dietrich Final Report: INDICATION: fall CT HEAD WITHOUT CONTRAST TECHNIQUE: Multiple axial CT images were performed through the head without intravenous contrast administration. COMPARISON: 11/28/[address] FINDINGS: No acute intracranial hemorrhage is identified. No extra-axial collections are evident and there is no mass effect or midline shift. There is mild diffuse age-related brain atrophy. Ventricular size and configuration are within normal limits for the patient`s age. Dumont-white differentiation is within normal limits. There is patchy hypodensity in the periventricular white matter, a nonspecific finding which most likely reflects chronic small vessel ischemic change. Intracranial atherosclerotic vascular calcifications are noted. Osseous structures are within normal limits and no fractures are seen. Included portions of the paranasal sinuses and mastoid air cells are normally aerated. IMPRESSION: 1. No acute intracranial abnormality identified. No fractures are seen. 2. Age-related brain atrophy, white matter hypodensity consistent with chronic small vessel ischemic change, and intracranial atherosclerotic vascular calcifications. DELORIS NIELSEN MD [employer] Dictated by: Madan Nielsen MD @ 08/30/2016 16:16:12 (Electronic Signature) Report Signed by Proxy. [facility]
--- NOTE | 2016-08-31 11:42 | CR ---
EXAM DATE: 08/30/16 PATIENT'S AGE: 89 Patient: VIKTOR VASQUEZ Facility: [place], [place] Site . Site : 1925 Study: XRay Extremity Left ribs [id number]/21/2017 4:21:24 PM Ordering Physician: Don Dietrich Final Report: INDICATION: trauma/fall TECHNIQUE: Chest 1 view and left rib series. Some of the left rib cage is obscured by overlying battery pack from ICD device COMPARISON: None FINDINGS: Cardiovascular and mediastinum: The cardiac silhouette is within the upper limits of normal in size. Atherosclerotic disease. [address] Calcified right paratracheal lymph nodes. Lungs and pleural space: 3.2 cm pulmonary mass within the left upper lobe. No sign of pleural effusion. No pneumothorax. Bones and soft tissues: Left 7th through 10th lateral left rib fractures. IMPRESSION: 1. Left 7th through 10th lateral rib fractures. 2. 3.2 cm pulmonary mass in left upper lobe. Recommend comparison with prior imaging to evaluate for stability /chronicity and /or followup with unenhanced CT of the chest. Dictated by Ahsan Guadarrama MD @ 08/30/2016 4:33:44 PM Dictated by: Ahsan Guadarrama MD @ 08/30/2016 16:33:51 (Electronic Signature) Report Signed by Proxy. [facility]
--- NOTE | 2016-08-31 11:43 | CR ---
EXAM DATE: 08/30/16 PATIENT'S AGE: 89 Patient: VIKTOR VASQUEZ Facility: [place], [place] Site . Site : 1925 Study: XRay Extremity Left [id number] FIB-08/30/2016 4:40:04 PM Ordering Physician: Don Dietrich Final Report: INDICATION: TRAUMA TECHNIQUE: Two views left tibia/ fibula. Lateral projection is clinically degraded by overlying artifact. COMPARISON: None FINDINGS: Bones: The bone mineralization is decreased. Lateral applied plate and multiple screws transfixing a healed distal fibular fracture with no evidence of hardware complication. No fractures or bone lesions. Joint spaces: Chondrocalcinosis of the medial and lateral compartments of the left knee. Degenerative change of the imaged left ankle. Soft tissues: Atherosclerotic disease. IMPRESSION: No acute bony abnormality or evidence of hardware complication. Dictated by Ahsan Guadarrama MD @ 08/30/2016 4:54:44 PM Dictated by: Ahsan Guadarrama MD @ 08/30/2016 16:55:08 (Electronic Signature) Report Signed by Proxy. [facility]
--- NOTE | 2016-08-31 11:45 | CR ---
EXAM DATE: 08/30/16 PATIENT'S AGE: 89 Patient: VIKTOR VASQUEZ Facility: [place], [place] Site . Site : 1925 Study: XRay Extremity Left FEMUR [id number]/21/2017 4:41:24 PM Ordering Physician: Don Dietrich Final Report: INDICATION: TRAUMA TECHNIQUE: Left femur radiographs. The lateral projection of the left femur was included in the left hip radiographs performed same day COMPARISON: None FINDINGS: Bones: The bone mineralization is decreased. No fractures or bone lesions. Joint spaces: Degenerative changes. Soft tissues: Atherosclerotic disease. Postsurgical changes within the imaged left lower pelvis. IMPRESSION: No acute bony abnormality. Dictated by Ahsan Guadarrama MD @ 08/30/2016 4:57:27 PM Dictated by: Ahsan Guadarrama MD @ 08/30/2016 16:57:40 (Electronic Signature) Report Signed by Proxy. [facility]
--- NOTE | 2016-08-31 11:46 | CR ---
EXAM DATE: 08/30/16 PATIENT'S AGE: 89 Patient: VIKTOR VASQUEZ Facility: [place], [place] Site . Site : 1925 Study: XRay Pelvis Left [id number]/21/2017 4:42:12 PM Ordering Physician: Don Dietrich Final Report: INDICATION: TRAUMA FALL TECHNIQUE: AP view of the bony pelvis and dedicated left hip radiographs COMPARISON: None FINDINGS: Bones: The bone mineralization is decreased. No fractures or bone lesions. Joint spaces: Degenerative changes. Soft tissues: Atherosclerotic disease. Postsurgical changes within the imaged left pelvis. IMPRESSION: No acute bony abnormality. Dictated by Ahsan Guadarrama MD @ 08/30/2016 5:05:37 PM Dictated by: Ahsan Guadarrama MD @ 08/30/2016 17:05:50 (Electronic Signature) Report Signed by Proxy. [facility]
--- NOTE | 2016-08-31 11:50 | US ---
EXAMINATION: MAGI HISTORY: Arterial occlusion COMPARISON: Ultrasound from the same day TECHNIQUE: Pressures obtained in the upper and lower extremities bilaterally. FINDINGS/IMPRESSION: The right MAGI is normal and greater than 1. The left MAGI is significantly abnor mal at 0.58.
--- NOTE | 2016-08-31 13:11 | PCM.PN ---
<Dada Nielson - Last Filed: 08/31/16 13:25> - General Info Date of Service: 08/31/16 Admission Dx/Problem (Free Text): fall Subjective Update: Doing well this morning. Having some back pain chronic but no longer left leg pain. Eating and eliminating without difficulty. no chest pain, sob, palpitations. - Review of Systems General: Denies: Fever, Weakness, Fatigue HEENT: Denies: headaches, visual changes Pulmonary: Denies: shortness of breath, pleuritic chest pain, wheezing Cardiovascular: Denies: Chest Pain, Palpitations, Edema Gastrointestinal: Denies: Abdominal pain, Diarrhea, Nausea, Vomiting Genitourinary: Denies: dysuria, hematuria Musculoskeletal: Denies: neck pain, leg pain Skin: Denies: cyanosis Neurological: Denies: Confusion, Dizziness Psychiatric: Denies: confusion - Patient Data Vitals - most recent: Last Vital Signs Temp 35.6 C 08/31/16 12:00 Pulse 80 08/31/16 12:00 Resp 16 08/31/16 12:00 BP 127/76 08/31/16 12:00 Pulse Ox 96 08/31/16 12:00 Weight - most recent: 66.678 kg I&O - last 24 hours: Intake & Output 08/30/16 08/31/16 08/31/16 22:59 06:59 14:59 Intake Total 200 800 Output Total 1135 Balance 200 -335 Lab Results last 24 hrs: Laboratory Results - last 24 hr 08/31/16 08/31/16 Range/Units 04:17 04:17 WBC 10.24 (4.0-11.0) K/uL RBC 4.22 L (4.30-5.90) M/uL Hgb 12.7 (12.0-16.0) g/dL Hct 39.8 (36.0-46.0) % MCV 94.3 (80.0-98.0) fL MCH 30.1 (27.0-32.0) pg MCHC 31.9 (31.0-37.0) g/dL RDW Std Deviation 49.8 (28.0-62.0) fl RDW Coeff of Colin 15 (11.0-15.0) % Plt Count 303 (150-400) K/uL MPV 10.20 (7.40-12.00) fL Neut % (Auto) 68.7 (48.0-80.0) % Lymph % (Auto) 22.1 (16.0-40.0) % [place] % (Auto) 7.2 (0.0-15.0) % Eos % (Auto) 1.8 (0.0-7.0) % Baso % (Auto) 0.2 (0.0-1.5) % Neut # (Auto) 7.0 H (1.4-5.7) K/uL Lymph # (Auto) 2.3 (0.6-2.4) K/uL [place] # (Auto) 0.7 (0.0-0.8) K/uL Eos # (Auto) 0.2 (0.0-0.7) K/uL Baso # (Auto) 0.0 (0.0-0.1) K/uL Nucleated RBC % 0.0 /100WBC Nucleated RBCs # 0 K/uL Sodium 137 (136-146) mmol/L Potassium 4.4 (3.5-5.1) mmol/L Chloride 107 (98-110) mmol/L Carbon Dioxide 20 L (21-31) mmol/L BUN 18 (6.0-23.0) mg/dL Creatinine 1.0 (0.6-1.5) mg/dL Est Cr Clr Drug Dosing 32.17 mL/min Estimated GFR (MDRD) 52.3 ml/min Glucose 88 (60-110) mg/dL Calcium 8.1 L (8.8-10.8) mg/dL Phosphorus 3.2 (2.4-4.7) mg/dL Magnesium 1.5 (1.5-2.3) mEq/L Med Orders - Current: Current Medications Acetaminophen (Tylenol) 650 mg PO Q4H PRN PRN Reason: Pain (Mild 1-3)/fever Acetaminophen/Codeine Phosphate (Tylenol With Codeine No.3 300mg/30mg) 1 tab PO TID PRN PRN Reason: Pain Last Admin: 08/31/16 05:48 Dose: 1 tab Hydrocodone Bitart/Acetaminophen (Eleanor 325-5 Mg) 1 tab PO Q4H PRN PRN Reason: Pain (moderate 4-6) Artificial Tears (Refresh Plus 0.5%) 0 each EYEBOTH BID [facility] Last Admin: 08/31/16 08:09 Dose: 1 drop Calcium Carbonate/Glycine (Tums) 1,000 mg PO Q6H PRN PRN Reason: Heartburn Diltiazem HCl (Cardizem Cd) 120 mg PO DAILY [facility] Last Admin: 08/31/16 08:09 Dose: 120 mg Furosemide (Lasix) 40 mg PO DAILY [facility] Last Admin: 08/31/16 08:10 Dose: 40 mg Ciprofloxacin/Dextrose 400 mg/ (Premix) 200 mls @ 200 mls/hr IV Q12H [facility] Last Admin: 08/31/16 05:43 Dose: 200 mls/hr Metoprolol Tartrate (Lopressor) 25 mg PO BID [facility] Last Admin: 08/31/16 08:08 Dose: 25 mg Omeprazole (Omeprazole) 20 mg PO ACBREAKFAST [facility] Last Admin: 08/31/16 06:34 Dose: 20 mg Ondansetron HCl (Zofran Odt) 4 mg PO Q4H PRN PRN Reason: nausea, able to take PO Potassium Chloride (Klor-Con M20) 20 meq PO DAILY [facility] Last Admin: 08/31/16 08:08 Dose: 20 meq Sodium Chloride (Saline Flush) 10 ml FLUSH ASDIRECTED PRN PRN Reason: Keep Vein Open Sodium Chloride (Saline Flush) 2.5 ml FLUSH ASDIRECTED PRN PRN Reason: Keep Vein Open Venlafaxine HCl (Effexor Xr) 37.5 mg PO DAILY [facility] Last Admin: 08/31/16 08:10 Dose: 37.5 mg - Exam Quality Assessment: DVT prophylaxis General: alert, oriented, cooperative, no acute distress HEENT: Pupils equal, Pupils reactive, EOMI, Mucous membr. moist/pink Neck: supple Lungs: Clear to auscultation, Normal respiratory effort Cardiovascular: Regular Rate, Regular Rhythm Abdomen: bowel sounds present, soft, no tenderness, no distension Back Exam: Normal Inspection Extremities: no edema, normal pulses, no tenderness/swelling Peripheral Pulses: 2+: Radial (L), Radial (R), Posterior Tibial (L), Posterior Tibial (R), Dorsalis Pedis (L), Dorsalis Pedis (R) Skin: warm, dry, intact Wound/Incisions: healing well Neurological: no new focal deficit Psy/Mental Status: alert, normal affect, normal mood - Problem List & Annotations (1) Rib fractures SNOMED Code(s): 71041568 Code(s): S22.39XA - FRACTURE OF ONE RIB, UNSP SIDE, INIT FOR CLOS FX Status : Acute Priority: High Current Visit: Yes Qualifiers: Encounter type: initial encounter Rib fracture type: multiple ribs Fracture type: closed Laterality: left Qualified Code(s): S22.42XA - Multiple fractures of ribs, left side, initial encounter for closed fracture (2) Unable to ambulate SNOMED Code(s): 695732839 Code(s): R26.2 - DIFFICULTY IN WALKING, NOT ELSEWHERE CLASSIFIED Status: Acute Priority: High Current Visit: Yes (3) Contusion SNOMED Code(s): 370328491 Code(s): T14.8 - OTHER INJURY OF UNSPECIFIED BODY REGION Status: Acute Priority: Medium Current Visit: Yes Onset Date: 02/07/14 (4) Fall SNOMED Code(s): 5680392 Code(s): W19.XXXA - UNSPECIFIED FALL, INITIAL ENCOUNTER Status: Acute Priority: High Current Visit: Yes Onset Date: 02/13/14 (5) Femoral artery stenosis, left SNOMED Code(s): 222786134 Code(s): I70.202 - UNSP ATHSCL TETLIN ARTERIES OF EXTREMITIES, LEFT LEG Status: Acute Current Visit: Yes - Problem List Review Problem List Initiated/Reviewed/Updated: Yes - My Orders Last 24 Hours: My Active Orders 08/30/16 18:33 Patient Status [ADT] Routine Oxygen Therapy [RC] PRN Up With Assistance [RC] ASDIRECTED Vital Signs [RC] Q4H OT Evaluation and Treatment [CONS] Routine PT Evaluation and Treatment [CONS] Routine Acetaminophen [Tylenol] 650 mg PO Q4H PRN Acetaminophen/HYDROcodone [Eleanor 325-5 MG] 1 tab PO Q4H PRN Ondansetron [Zofran ODT] 4 mg PO Q4H PRN Resuscitation Status Routine 08/30/16 18:36 Sequential Compression Device [OM.PC] Per Unit Routine 08/30/16 18:38 Antiembolic Devices [RC] PER UNIT ROUTINE 08/30/16 18:39 Calcium Carbonate [Tums] 1,000 mg PO Q6H PRN 08/30/16 18:45 Ciprofloxacin in D5W [Cipro in D5W 400 MG/200 ML] 400 mg Premix Bag 1 bag IV Q12H 08/30/16 19:29 Acetaminophen/Codeine [Tylenol with Codeine No.3 300MG/30MG] 1 tab PO TID PRN 08/30/16 21:00 Carboxymethylcellulose Sodium [Refresh Plus 0.5%] 0 each EYEBOTH BID Metoprolol Tartrate [Lopressor] 25 mg PO BID 08/30/16 Dinner Regular Diet [DIET] 08/31/16 07:08 Lumbar Spine 2 or 3V [CR] Routine 08/31/16 07:30 Omeprazole 20 mg PO ACBREAKFAST 08/31/16 09:00 Diltiazem [Cardizem CD] 120 mg PO DAILY Furosemide [Lasix] 40 mg PO DAILY Potassium Chloride [Klor-Con M20] 20 meq PO DAILY Venlafaxine [Effexor XR] 37.5 mg PO DAILY 09/01/16 05:11 BASIC METABOLIC PANEL,BMP [CHEM] AM CBC WITH AUTO DIFF [HEME] AM 09/02/16 05:11 BASIC METABOLIC PANEL,BMP [CHEM] AM CBC WITH AUTO DIFF [HEME] AM 09/03/16 05:11 BASIC METABOLIC PANEL,BMP [CHEM] AM CBC WITH AUTO DIFF [HEME] AM - Plan Plan:: 89-year-old female admitted 08/30/18 for fall with sustained right rib fractures and left leg pain with pmh of htn, bi-valv pacemaker, TIA, osteoarthritis, GERD , depression, and recently diagnosed UTI on Cipro. 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 MAGI's normal on right but abnormal 0.58 on the left. Discussed findings with patient and possible further testing with CTA as well as vascular surgery. She does not wish for any further procedures at this time since she is not having any pain. Discussed that if no intervention is done there is a risk of extremety loss if total occlusion. She is in understanding and does not wish to proceed at this time. Most likely patient does have fairly good collateral flow as she has not been symptomatic before and no longer has symptoms. UTI: Culture pending. Cont. Cipro IV while inpatient. No noted CVA tenderness on exam. No abdominal pain. Rib fractures: 7-10 left rib fractures. Stable no flail chest. Pain control acetaminophen and Eleanor 5 htn: Stable cont home meds Bi-valv pacemaker: Stable on telemetry GERD: Stable cont home meds. Debilitation: PT/OT to assess balance and strengthening VTE: SCD high fall risk Dispo: Tomorrow back to [facility]. Dr. Sandra PCP <Jose Squires - Last Filed: 08/31/16 19:39> - Patient Data Vitals - most recent: Last Vital Signs Temp 36.4 C 08/31/16 16:00 Pulse 88 08/31/16 16:00 Resp 18 08/31/16 16:00 BP 126/82 08/31/16 16:00 Pulse Ox 95 08/31/16 18:33 I&O - last 24 hours: Intake & Output 08/31/16 08/31/16 08/31/16 06:59 14:59 22:59 Intake Total 800 650 Output Total 1135 1300 Balance -335 -650 Lab Results last 24 hrs: Laboratory Results - last 24 hr 08/31/16 08/31/16 Range/Units 04:17 04:17 WBC 10.24 (4.0-11.0) K/uL RBC 4.22 L (4.30-5.90) M/uL Hgb 12.7 (12.0-16.0) g/dL Hct 39.8 (36.0-46.0) % MCV 94.3 (80.0-98.0) fL MCH 30.1 (27.0-32.0) pg MCHC 31.9 (31.0-37.0) g/dL RDW Std Deviation 49.8 (28.0-62.0) fl RDW Coeff of Colin 15 (11.0-15.0) % Plt Count 303 (150-400) K/uL MPV 10.20 (7.40-12.00) fL Neut % (Auto) 68.7 (48.0-80.0) % Lymph % (Auto) 22.1 (16.0-40.0) % [place] % (Auto) 7.2 (0.0-15.0) % Eos % (Auto) 1.8 (0.0-7.0) % Baso % (Auto) 0.2 (0.0-1.5) % Neut # (Auto) 7.0 H (1.4-5.7) K/uL Lymph # (Auto) 2.3 (0.6-2.4) K/uL [place] # (Auto) 0.7 (0.0-0.8) K/uL Eos # (Auto) 0.2 (0.0-0.7) K/uL Baso # (Auto) 0.0 (0.0-0.1) K/uL Nucleated RBC % 0.0 /100WBC Nucleated RBCs # 0 K/uL Sodium 137 (136-146) mmol/L Potassium 4.4 (3.5-5.1) mmol/L Chloride 107 (98-110) mmol/L Carbon Dioxide 20 L (21-31) mmol/L BUN 18 (6.0-23.0) mg/dL Creatinine 1.0 (0.6-1.5) mg/dL Est Cr Clr Drug Dosing 32.17 mL/min Estimated GFR (MDRD) 52.3 ml/min Glucose 88 (60-110) mg/dL Calcium 8.1 L (8.8-10.8) mg/dL Phosphorus 3.2 (2.4-4.7) mg/dL Magnesium 1.5 (1.5-2.3) mEq/L Med Orders - Current: Current Medications Acetaminophen (Tylenol) 650 mg PO Q4H PRN PRN Reason: Pain (Mild 1-3)/fever Acetaminophen/Codeine Phosphate (Tylenol With Codeine No.3 300mg/30mg) 1 tab PO TID PRN PRN Reason: Pain Last Admin: 08/31/16 16:41 Dose: 1 tab Hydrocodone Bitart/Acetaminophen (Eleanor 325-5 Mg) 1 tab PO Q4H PRN PRN Reason: Pain (moderate 4-6) Artificial Tears (Refresh Plus 0.5%) 0 each EYEBOTH BID [facility] Last Admin: 08/31/16 08:09 Dose: 1 drop Calcium Carbonate/Glycine (Tums) 1,000 mg PO Q6H PRN PRN Reason: Heartburn Diltiazem HCl (Cardizem Cd) 120 mg PO DAILY [facility] Last Admin: 08/31/16 08:09 Dose: 120 mg Furosemide (Lasix) 40 mg PO DAILY [facility] Last Admin: 08/31/16 08:10 Dose: 40 mg Ciprofloxacin/Dextrose 400 mg/ (Premix) 200 mls @ 200 mls/hr IV Q12H [facility] Last Admin: 08/31/16 17:49 Dose: 200 mls/hr Metoprolol Tartrate (Lopressor) 25 mg PO BID [facility] Last Admin: 08/31/16 08:08 Dose: 25 mg Omeprazole (Omeprazole) 20 mg PO ACBREAKFAST [facility] Last Admin: 08/31/16 06:34 Dose: 20 mg Ondansetron HCl (Zofran Odt) 4 mg PO Q4H PRN PRN Reason: nausea, able to take PO Potassium Chloride (Klor-Con M20) 20 meq PO DAILY [facility] Last Admin: 08/31/16 08:08 Dose: 20 meq Sodium Chloride (Saline Flush) 10 ml FLUSH ASDIRECTED PRN PRN Reason: Keep Vein Open Sodium Chloride (Saline Flush) 2.5 ml FLUSH ASDIRECTED PRN PRN Reason: Keep Vein Open Venlafaxine HCl (Effexor Xr) 37.5 mg PO DAILY [facility] Last Admin: 08/31/16 08:10 Dose: 37.5 mg - Free Text/Narrative Note: I have examined the patient. I have discussed findings and treatment plan with resident. I agree with the assessment and plan outlined in the following note.
--- NOTE | 2016-08-31 14:52 | CR ---
EXAMINATION: The lumbar spine HISTORY: Fall COMPARISON: 02/27/2014 TECHNIQUE: AP and lateral views FINDINGS: There is a trace anterolisthesis of L3 on L4 and L4 on L5. No fracture or acute osseous ab normalities noted. Minimal wedging is noted in the thoracic spine at the approximate T9 and T10 vert ebral bodies. The SI joints are symmetric. The osseous structures appear osteopenic. Clips project o [place] the pelvis. No displaced fracture identified. IMPRESSION: 1. Osteopenia. 2. Moderate degenerative changes noted. 3. Minimal compression deformities within the mid to lower thoracic spine, grossly unchanged.
[2016-09-01] MEDS: Ciprofloxacin in D5W 400 MG in Premix Bag 1 BAG IV SCH ×2 (07:07)
[2016-09-01] MEDS: Omeprazole 20 MG Cap.CR PO SCH (07:07)
[2016-09-01] MEDS: Diltiazem 120 MG Cap.CD PO SCH (08:02)
[2016-09-01] MEDS: Potassium Chloride 20 MEQ Tab.ER PO SCH (08:02)
[2016-09-01] MEDS: Furosemide 40 MG Tab PO SCH (08:02)
[2016-09-01] MEDS: Venlafaxine 37.5 MG Cap.ER PO SCH (08:02)
[2016-09-01] MEDS: Metoprolol Tartrate 25 MG Tab PO SCH (08:03)
[2016-09-01] MEDS: Carboxymethylcellulose Sodium 0.5% Ophth Soln 0.4 ML UD Box of 30 EYEBOTH SCH (08:03)
[2016-09-01 09:07] VITALS: BP 136/74
--- NOTE | 2016-09-01 09:38 | PCM.DCSUM1 ---
Discharge Summary - Hospital Course Brief History: she was admitted after a fall. She had leg pain and multiple right rib fractures. - Discharge Data Discharge Date: 09/01/16 Discharge Disposition: Home, Self-Care 01 Condition: Fair - Patient Summary/Data Consults: Consultations 08/30/16 18:33 OT Evaluation and Treatment [CONS] Routine PT Evaluation and Treatment [CONS] Routine Hospital Course: she was noted on ultrasound to have no left DVT but a high grade femoral artery occlusion. She declined referral to vascular surgery. At discharge her left leg pain has resolved and her leg pain has resolved. She was noted to have a pulmonary nodule on CXR and a non contrasted chest CT is ordered before discharge. She feels ready to go home at discharge. She was treated with keflex for a suspected UTI. Her urine culture grew out a suspected contaminant. she has adequate pain control at discharge. She does not feel constipated. - Discharge Plan Home Medications: Home Meds Acetaminophen [Tylenol] 325 mg PO Q4H PRN 02/07/14 [History] Acetaminophen with Codeine [Tylenol with Codeine #3 Tablet] 1 each PO TID PRN [History] Diltiazem [Cardizem CD] 120 mg PO DAILY 02/07/14 [History] Metoprolol Tartrate 25 mg PO BID 02/07/14 [History] Calcium Carbonate [Tums] 1,000 mg PO Q6H PRN 08/30/16 [History] Carboxymethylcellulose Sodium [Refresh Tears] 1 drop EYEBOTH BID 08/30/16 [ History] Ergocalciferol (Vitamin D2) [Vitamin D2] 50,000 unit PO FR@0800 08/30/16 [ History] Furosemide 40 mg PO DAILY 08/30/16 [History] Loperamide HCl [Imodium A-D] 4 mg PO ONETIME PRN 08/30/16 [History] Menthol [Icy Hot Pain Relieving] 1 appful TP BID PRN 08/30/16 [History] Omeprazole 20 mg PO ACBREAKFAST 08/30/16 [History] Petrolatum,White [Vaseline] 1 applic TP DAILY PRN 08/30/16 [History] Potassium Chloride 20 meq PO DAILY 08/30/16 [History] Venlafaxine [Effexor XR] 37.5 mg PO DAILY 08/30/16 [History] Vit A/Vit C/Vit E/Zinc/Copper [Preservision] 2 tab PO DAILY 08/30/16 [History] Acetaminophen [Tylenol] 325 mg PO DAILY 08/31/16 [History] Ciprofloxacin HCl [Cipro] 250 mg PO Q12H 08/31/16 [History] Loperamide [Imodium] 2 mg PO QID PRN 08/31/16 [History] Referrals: Orestes Sandra MD [Primary Care Provider] - 09/05/16 3:00 pm - Patient Data Vitals - Most Recent: Last Vital Signs Temp 98.2 F 09/01/16 08:00 Pulse 114 H 09/01/16 08:03 Resp 20 09/01/16 08:00 BP 127/84 09/01/16 08:03 Pulse Ox 93 L 09/01/16 08:00 Weight - Most Recent: 66.678 kg I&O - Last 24 hours: Intake & Output 08/31/16 09/01/16 09/01/16 22:59 06:59 14:59 Intake Total 650 400 Output Total 1300 350 Balance -650 50 Lab Results - Last 24 hrs: Laboratory Results - last 24 hr 09/01/16 09/01/16 Range/Units 05:05 05:05 WBC 9.41 (4.0-11.0) K/uL RBC 3.95 L (4.30-5.90) M/uL Hgb 11.9 L (12.0-16.0) g/dL Hct 36.8 (36.0-46.0) % MCV 93.2 (80.0-98.0) fL MCH 30.1 (27.0-32.0) pg MCHC 32.3 (31.0-37.0) g/dL RDW Std Deviation 48.5 (28.0-62.0) fl RDW Coeff of Colin 14 (11.0-15.0) % Plt Count 292 (150-400) K/uL MPV 10.00 (7.40-12.00) fL Neut % (Auto) 65.2 (48.0-80.0) % Lymph % (Auto) 25.3 (16.0-40.0) % [place] % (Auto) 8.1 (0.0-15.0) % Eos % (Auto) 1.2 (0.0-7.0) % Baso % (Auto) 0.2 (0.0-1.5) % Neut # (Auto) 6.1 H (1.4-5.7) K/uL Lymph # (Auto) 2.4 (0.6-2.4) K/uL [place] # (Auto) 0.8 (0.0-0.8) K/uL Eos # (Auto) 0.1 (0.0-0.7) K/uL Baso # (Auto) 0.0 (0.0-0.1) K/uL Nucleated RBC % 0.0 /100WBC Nucleated RBCs # 0 K/uL Sodium 138 (136-146) mmol/L Potassium 4.0 (3.5-5.1) mmol/L Chloride 109 (98-110) mmol/L Carbon Dioxide 21 (21-31) mmol/L BUN 16 (6.0-23.0) mg/dL Creatinine 0.9 (0.6-1.5) mg/dL Est Cr Clr Drug Dosing 35.74 mL/min Estimated GFR (MDRD) 59.1 ml/min Glucose 94 (60-110) mg/dL Calcium 7.9 L (8.8-10.8) mg/dL Med Orders - Current: Current Medications Acetaminophen (Tylenol) 650 mg PO Q4H PRN PRN Reason: Pain (Mild 1-3)/fever Last Admin: 08/31/16 20:40 Dose: 650 mg Acetaminophen/Codeine Phosphate (Tylenol With Codeine No.3 300mg/30mg) 1 tab PO TID PRN PRN Reason: Pain Last Admin: 08/31/16 16:41 Dose: 1 tab Hydrocodone Bitart/Acetaminophen ([place] 325-5 Mg) 1 tab PO Q4H PRN PRN Reason: Pain (moderate 4-6) Artificial Tears (Refresh Plus 0.5%) 0 each EYEBOTH BID [facility] Last Admin: 09/01/16 08:03 Dose: 1 drop Calcium Carbonate/Glycine (Tums) 1,000 mg PO Q6H PRN PRN Reason: Heartburn Diltiazem HCl (Cardizem Cd) 120 mg PO DAILY [facility] Last Admin: 09/01/16 08:02 Dose: 120 mg Furosemide (Lasix) 40 mg PO DAILY [facility] Last Admin: 09/01/16 08:02 Dose: 40 mg Ciprofloxacin/Dextrose 400 mg/ (Premix) 200 mls @ 200 mls/hr IV Q12H [facility] Last Admin: 09/01/16 07:07 Dose: 200 mls/hr Metoprolol Tartrate (Lopressor) 25 mg PO BID [facility] Last Admin: 09/01/16 08:03 Dose: 25 mg Omeprazole (Omeprazole) 20 mg PO ACBREAKFAST [facility] Last Admin: 09/01/16 07:07 Dose: 20 mg Ondansetron HCl (Zofran Odt) 4 mg PO Q4H PRN PRN Reason: nausea, able to take PO Potassium Chloride (Klor-Con M20) 20 meq PO DAILY [facility] Last Admin: 09/01/16 08:02 Dose: 20 meq Sodium Chloride (Saline Flush) 10 ml FLUSH ASDIRECTED PRN PRN Reason: Keep Vein Open Sodium Chloride (Saline Flush) 2.5 ml FLUSH ASDIRECTED PRN PRN Reason: Keep Vein Open Venlafaxine HCl (Effexor Xr) 37.5 mg PO DAILY [facility] Last Admin: 09/01/16 08:02 Dose: 37.5 mg *Q Meaningful Use (DIS) - VTE *Q VTE Criteria *Q: - Stroke *Q Stroke Criteria *Q: - AMI *Q AMI Criteria *Q:
--- NOTE | 2016-09-01 16:57 | CT ---
EXAM DATE: 08/30/16 PATIENT'S AGE: 89 Patient: VIKTOR VASQUEZ Facility: [place], [place] Site . Site : [id number] Study: CT Chest [id number]/23/2017 10:21:08 AM Ordering Physician: Shaw Garcia Final Report: Indication: Left lung mass noted on prior chest x-ray. Comparison: Chest x-ray dated 11/02/2015. Technique: A CT volumetric acquisition was performed of the thorax without IV contrast. Findings: CT images demonstrate a malignant-appearing 2.7 cm mass posteriorly within the left lung apex. This has a spiculated outer border and abuts the posterior lateral pleural surface. There is a calcified granuloma within the posterior aspect superior segment right lower lobe and peripheral to this there is an ill- defined subpleural opacity measuring approximately 1 cm in size. No additional suspect nodules are identified. The patient has bronchial wall thickening within the central lung zones suggesting chronic bronchitis changes. There is a peripheral band of subpleural atelectasis within the right lung base. There is a trace amount of pleural fluid within the lower left thorax. Calcified lymph nodes are evident within the right hilum, peritracheal and subcarinal regions. There is no evidence of malignant appearing lymphadenopathy by size criteria. The largest station 6 lymph node on the left and measures 6 mm in short axis. Atherosclerotic calcifications are evident within the thoracic aorta and coronary arteries. Heart size appears normal. There is no evidence pericardial fluid. Within the visualized abdomen the adrenal glands have normal morphology. There is generalized hepatic steatosis. 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 Would recommend pulmonary referral. Please note that all CT scans at this facility use dose modulation, iterative reconstruction, and/or weight-based dosing when appropriate to reduce radiation dose to as low as reasonably achievable. Dictated by Jerry Kessler MD @ Sep 01 2016 11:14AM (Electronic Signature) Report Signed by Proxy. ABRIL
== END 2016-09-01 13:15 | disposition home or self-care (01) ==
LOC: MW.ED 13:59 → MW.MS 17:51
PROVIDERS: ADMIT Internal Medicine; ATTEND Internal Medicine
DX: M79.605 Pain in left leg (principal); S22.42XA Multiple fractures of ribs, left side, initial encounter for closed fracture; R91.8 Other nonspecific abnormal finding of lung field; R26.2 Difficulty in walking, not elsewhere classified; T14.8 Other injury of unspecified body region; I70.202 Unspecified atherosclerosis of native arteries of extremities, left leg; N39.0 Urinary tract infection, site not specified; D72.829 Elevated white blood cell count, unspecified; E87.5 Hyperkalemia; M85.80 Other specified disorders of bone density and structure, unspecified site; I10 Essential (primary) hypertension; M19.90 Unspecified osteoarthritis, unspecified site; K21.9 Gastro-esophageal reflux disease without esophagitis; F32.9 Major depressive disorder, single episode, unspecified; M06.9 Rheumatoid arthritis, unspecified; Z79.2 Long term (current) use of antibiotics; Z79.899 Other long term (current) drug therapy; Z95.0 Presence of cardiac pacemaker; Z86.73 Personal history of transient ischemic attack (TIA), and cerebral infarction without residual deficits; Z88.5 Allergy status to narcotic agent; Z88.8 Allergy status to other drugs, medicaments and biological substances; W19.XXXA Unspecified fall, initial encounter
CPT/HCPCS: 36415; 70450; 70450-26; 71101-26-LT; 71101-LT; 71250; 71250-26; 72100; 72100-26; 73502-26-LT; 73502-LT; 73552-26-LT; 73552-LT; 73590-26-LT; 73590-LT; 80048; 80053; 81001; 83735; 84100; 84484; 85025; 85610; 87086; 93005; 93922; 93922-26; 93971-26-LT; 93971-LT; 97162-GP; 97165-GO; 99285; 99285-25; A9270-GY; G0378; J0744